=== PATIENT | male | born 1955 | race Caucasian/White ===

== ENCOUNTER → 2017-03-05 | Outpatient (CLI) | payer OTHER | LOC: FIMAGING 07:48 | PROVIDERS: ATTEND Orthopaedic Surgery | DX: Z01.818 Encounter for other preprocedural examination (principal); M17.11 Unilateral primary osteoarthritis, right knee; M25.461 Effusion, right knee; M23.41 Loose body in knee, right knee; M16.11 Unilateral primary osteoarthritis, right hip ==

== ENCOUNTER 2017-03-15 06:07 | Inpatient (IN) | payer OTHER ==
[~2017-03-15 06:07] MED LIST: ROPIVACAINE 0.2% 80 MG, EPINEPHrine 0.2 MG, KETOROLAC TROMETHAMINE 30 MG in SYRINGE 0 ML IU ONE; TRANEXAMIC ACID 3,000 MG in NS 50 ML IRR ONE
[2017-03-15] MEDS ORDERED: ACETAMINOPHEN 325 MG TAB PO ONE (06:12)
[2017-03-15] MEDS ORDERED: ceFAZolin 2 GM/SWFI 2 GM/20 ML SYR IVP ONE (06:12)
[2017-03-15] MEDS ORDERED: FAMOTIDINE 20 MG TAB PO ONE (06:12)
[2017-03-15] MEDS ORDERED: DEXAMETHASONE 4 MG/ML VIAL IVP ONE (06:12)
[2017-03-15] MEDS ORDERED: LR 1,000 ML IV ONE (06:16)
[2017-03-15] MEDS ORDERED: TRANEXAMIC ACID 3,000 MG/50 ML BAG IRR ONE (06:42)
[2017-03-15] MEDS ORDERED: VANCOMYCIN 1 GM VIAL ONE (06:42)
[2017-03-15] MEDS ORDERED: BUPIVACAINE 0.5% 30 ML SDV ONE (07:02)
[2017-03-15] MEDS ORDERED: PROPOFOL/EMULSION 500 MG/50 ML BOTTLE IV ONE (07:03)
[2017-03-15] MEDS ORDERED: MIDAZOLAM 2 MG/2 ML VIAL ONE (07:06)
[2017-03-15] MEDS ORDERED: PROMETHAZINE HCL 25 MG SUPPR PR PRN (07:18)
[2017-03-15] MEDS ORDERED: BISACODYL 10 MG SUPP PR PRN (07:18)
[2017-03-15] MEDS ORDERED: ONDANSETRON DISINTEGRATING 4 MG TAB PO PRN (07:18)
[2017-03-15] MEDS ORDERED: METOCLOPRAMIDE 10 MG/2 ML VIAL IVP PRN (07:18)
[2017-03-15] MEDS ORDERED: PROMETHAZINE HCL 25 MG/ML INJ IVP PRN (07:18)
[2017-03-15] MEDS ORDERED: diphenhydrAMINE 25 MG CAP PO PRN (07:18)
[2017-03-15] MEDS ORDERED: ONDANSETRON 4 MG/2 ML VIAL IVP PRN (07:18)
[2017-03-15] MEDS ORDERED: LACTULOSE 20 GM/30 ML UDCUP PO PRN (07:18)
[2017-03-15] MEDS ORDERED: POLYETHYLENE GLYCOL 3350 17 GM PKT PO PRN (07:18)
[2017-03-15] MEDS ORDERED: DIPHENOXYLATE/ATROPINE LOMOTIL 1 TAB PO PRN (07:18)
[2017-03-15] MEDS ORDERED: TEMAZEPAM 15 MG CAP PO PRN (07:18)
[2017-03-15] MEDS ORDERED: MAGNESIUM HYDROXIDE 30 ML UDCUP PO PRN (07:18)
--- NOTE | 2017-03-15 07:27 | PDHPUP ---
History & Physical Update H&P update statement: This history and physical update is based on an assessment of the patient which was completed after admission or registration (within 24 hours), but prior to the surgery/procedure. H&P update: H&P reviewed & patient examined, no change in patient's condition since H&P completed
[2017-03-15] MEDS ORDERED: LR 1,000 ML IV SCH (07:30)
--- NOTE | 2017-03-15 07:53 | PDANEPAE ---
ANE History of Present Illness right TKA ANE Past Medical History - Cardiovascular History Hx Hypertension: Yes Hx Arrhythmias: No Hx Chest Pain: No Hx Coronary Artery / Peripheral Vascular Disease: No Hx CHF / Valvular Disease: No Hx Palpitations: No Cardiovascular History Comment: bicusbid aortic valve. - Pulmonary History Hx COPD: No Hx Asthma/Reactive Airway Disease: No Hx Recent Upper Respiratory Infection: No Hx Oxygen in Use at Home: No Hx Sleep Apnea: No Sleep Apnea Screening Result - Last Documented: Positive - Neurologic History Hx Cerebrovascular Accident: No Hx Seizures: No Hx Dementia: No - Endocrine History Hx Diabetes: No Hypothyroid: Yes Obesity: no - Renal History Hx Renal Disorders: Yes - Liver History Hx Hepatic Disorders: No - Neurological & Psychiatric Hx Hx Neurological and Psychiatric Disorders: No - Cancer History Hx Cancer: No - Congenital Disorder History Hx Congenital Disorders: No - GI History Hx Gastrointestinal Disorders: No - Other Health History Other Health History: none - Chronic Pain History Chronic Pain: Yes (shoulders) - Surgical History Prior Surgeries: kidney stones x 5. R knee scopes. R wrist sx. L ankle sx. Bilateral hernia sx ANE Review of Systems Review of systems is: negative Review of Systems: - Exercise capacity METS (RN): 5 METS ANE Patient History - Allergies Allergies/Adverse Reactions: Sulfa (Sulfonamide Antibiotics) Allergy (Severe, Verified 06/06/15 11:39) TURNS PURPLE - Home Medications Home medications: home medication list seen and reviewed Home Medications: Alendronate Sodium [Fosamax 70 MG (*)] 70 mg PO SA@0700 02/11/17 [Last Taken 05/25] Cholecalciferol Vit D3 [Vitamin D3 2000 units tab (OTC)] 2,000 units PO DAILY [Last Taken 03/08/17] Fluticasone Nasal [Flonase Nasal [place] (RX)] 1 sprays NASAL HS 02/11/17 [Last Taken 3 Days Ago ~03/12/17] Hydrochlorothiazide [HCTZ (*)] 25 mg PO DAILY 02/11/17 [Last Taken 03/14/17] Hydroxychloroquine Sulfate [Plaquenil 200 mg (*)] 400 mg PO DAILY 02/11/17 [ Last Taken 03/14/17] Levothyroxine [Synthroid 150 mcg (*)] 150 mcg PO DAILY06 02/11/17 [Last Taken ] Naproxen Sodium [Aleve 220 MG (*)] 440 mg PO DAILY 02/11/17 [Last Taken 03/08/17 ] predniSONE 4 mg PO DAILY 02/11/17 [Last Taken 03/14/17] Albuterol [Proventil Inhaler HFA (*)] 1 - 2 puffs IH DAILY PRN 03/15/17 [Last Taken Unknown] - NPO status NPO Since - Liquids (Date): 03/14/17 NPO Since - Liquids (Time): 20:00 NPO Since - Solids (Date): 03/14/17 NPO Since - Solids (Time): 19:30 - Smoking Hx Smoking Status: Former smoker - Family Anes Hx Family Hx Anesthesia Complications: none ANE Labs/Vital Signs - Vital Signs Blood Pressure: 140/91 Heart Rate: 73 Respiratory Rate: 16 O2 Sat (%): 94 Height: 172.72 cm Weight: 79.379 kg ANE Physical Exam - Airway Neck exam: FROM Mallampati Score: Class 1 Mouth exam: normal dental/mouth exam - Pulmonary Pulmonary: no respiratory distress - Cardiovascular Cardiovascular: regular rate and rhythym - ASA Status ASA Status: II ANE Anesthesia Plan Anesthesia Plan: spinal Regional Anesthesia: single shot NB, adductor canal FNB Urgent/Emergent Case: Nasir agrcia completed preop but documented later for safe timely pt care
[2017-03-15] MEDS ORDERED: HYDROmorphONE/DILAUDID 1 MG/ML INJ IVP PRN (07:54)
[2017-03-15] MEDS ORDERED: LR 500 ML IV PRN (07:54)
[2017-03-15] MEDS ORDERED: ACETAMINOPHEN 500 MG TAB PO PRN (07:54)
[2017-03-15] MEDS ORDERED: NALOXONE HCL 0.4 MG/ML INJ IVP PRN (07:54)
[2017-03-15] MEDS ORDERED: ALBUTEROL 3 ML DEYVIAL IH PRN (07:54)
[2017-03-15] MEDS ORDERED: OXYCODONE/APAP 5/325 TAB PO PRN (07:54)
[2017-03-15] MEDS ORDERED: fentaNYL 100 MCG/2 ML INJ IVP PRN (07:54)
--- NOTE | 2017-03-15 07:54 | POSTANESTH ---
Post Anesthetic Evaluation Cardiovascular Status: Normal, Stable Respiratory Status: Normal, Stable Level of Consciousness/Mental Status: Can Participate in Eval Pain Control: Adequate, Prn Tx Ordered Complications Possibly Related to Anesthesia: None Noted
[2017-03-15] MEDS ORDERED: LIDOCAINE 2% 5 ML SDV ONE (08:03)
[2017-03-15] MEDS ORDERED: PROPOFOL 200 MG/20 ML VIAL ONE ×2 (08:08→08:26)
--- NOTE | 2017-03-15 08:45 | POSTOPPROG ---
Post Op Note Date of Operation: 03/15/17 Surgeon: Shannan Sharma Nurseryperson: jalen sharma Anesthesiologist: dr. grove Anesthesia: Spinal, Other (Specify) (adductor canal block) Pre-op Diagnosis: right knee OA Post-op Diagnosis: same Indication: right knee pain due to OA that failed conservative measures Procedure: R TKA robot assisted Findings: severe knee OA Inf/Abcess present in the surg proc area at time of surgery?: No EBL: 50-100
[2017-03-15] MEDS: ASPIRIN 325 MG TAB PO SCH ×2 (11:09→21:17)
[2017-03-15] MEDS: oxyCODONE IR 5 MG TAB PO PRN ×4 (11:15→21:12)
[2017-03-15] MEDS: SENNOSIDES/DOCUSATE SODIUM TAB PO SCH ×2 (11:21→21:11)
[2017-03-15] MEDS: CYCLOBENZAPRINE 10 MG TAB PO PRN ×2 (11:59→21:12)
[2017-03-15] MEDS: ACETAMINOPHEN 325 MG TAB PO SCH ×2 (11:59→18:06)
[2017-03-15] MEDS: ceFAZolin 2 GM/DEXTROSE 100 ML IV SCH (18:06)
[2017-03-15] MEDS ORDERED: FLUTICASONE NASAL 120 SPRAYS/16 GM MDI EACHNARE SCH (21:00)
[2017-03-15] MEDS ORDERED: NON-FORMULARY NEW DRUG (Fluticasone Nasal [Flonase Nasal Spray] 1 SPRAYS) NASAL SCH (21:00)
[2017-03-15] MEDS: FAMOTIDINE 20 MG TAB PO SCH (21:11)
[2017-03-15] MEDS: ASPIRIN 81 MG CHEWABLE TAB PO SCH (21:15)
[2017-03-16] MEDS: ACETAMINOPHEN 325 MG TAB PO SCH ×3 (00:17→12:01)
[2017-03-16] MEDS: ceFAZolin 2 GM/DEXTROSE 100 ML IV SCH (00:18)
[2017-03-16] MEDS: oxyCODONE IR 5 MG TAB PO PRN ×3 (03:33→12:01)
[2017-03-16 04:35] LABS: HEMATOCRIT 40.7 % (40.0-51.0); HEMOGLOBIN 14.6 g/dL (13.7-17.5)
[2017-03-16] MEDS ORDERED: LEVOTHYROXINE 150 MCG TAB PO SCH (06:00)
[2017-03-16 07:28] VITALS: BP 147/79; RESP 14; TEMP 97.7
[2017-03-16] MEDS: ASPIRIN 81 MG CHEWABLE TAB PO SCH (08:12)
[2017-03-16] MEDS: FAMOTIDINE 20 MG TAB PO SCH (08:14)
[2017-03-16] MEDS: SENNOSIDES/DOCUSATE SODIUM TAB PO SCH (08:15)
[2017-03-16] MEDS ORDERED: predniSONE 1 MG TAB PO SCH (09:00)
[2017-03-16] MEDS ORDERED: HYDROCHLOROTHIAZIDE 25 MG TAB PO SCH (09:00)
--- NOTE | 2017-03-16 09:46 | SOAPPROG ---
SOAP Progress Note Assessment/Plan: Assessment: Bryce is doing well today POD 1 s/p R TKA 1) pain management: pain is well controlled on oral pain management 2) VTE ppx: recommend aspirin 81 mg BID 3) d/c planning: d/c to home pending release from PT Plan: 03/16/17 09:44 03/16/17 09:46 Subjective: pain well controlled, denies SOB, chest pain and N/V. Objective: Vital Signs Temp Pulse Resp BP Pulse Ox 36.5 C 65 14 147/79 H 96 03/16/17 07:27 03/16/17 07:27 03/16/17 07:27 03/16/17 08:13 03/16/17 07:27 Laboratory Results 03/16/17 04:15 03/15/17 03/16/17 03/17/17 05:59 05:59 05:59 Intake Total 2920 Output Total 1380 Balance 1540 RLE: incision dressing is clean and dry, NVI, +pf/df ICD10 Worksheet Patient Problems: Problems Problem Status Onset Primary localized osteoarthritis of right knee Acute Calculus of kidney and ureter Active Kidney stone Active
[2017-03-16] MEDS: CYCLOBENZAPRINE 10 MG TAB PO PRN (12:01)
--- NOTE | 2017-03-16 12:35 | ASDISCHSUM ---
Discharge Information Plan Status:Home with No Needs Medically Cleared to Leave: Discharge Date:03/16/2017 12:18 PM CM D/C Disposition:Home, Routine, Self-Care ADT D/C Disposition:Home, Routine, Self-Care Projected Discharge Date:03/16/2017 12:18 PM Transportation at D/C: Discharge Delay Reason: Follow-Up Date:03/16/2017 12:18 PM Discharge Slot: Final Diagnosis: Placement Information Patient Contact Information Contact Name:LACY Relationship: Address:[address] Work Phone: City:[facility] [facility] Phone: [facility]/Zip Code:[place] [address] Email: Financial Information Financial Class:HMO and PPO Plans Primary Plan Desc:[address] PPO Primary Plan Number:[id number] Secondary Plan Desc: Secondary Plan Number: Assessment Information Intervention Information
[2017-03-16 12:57] VITALS: PULSE 69; O2SAT 94
--- NOTE | 2017-03-17 10:42 | GDS ---
[f rep st] DISCHARGE SUMMARY ADMISSION DIAGNOSIS: Right knee osteoarthritis. DISCHARGE DIAGNOSIS: Right knee osteoarthritis. PROCEDURE: Right total knee arthroplasty, robot assist. VTE PROPHYLAXIS: Aspirin recommended 4 weeks, 81 mg twice a day. BRIEF DESCRIPTION OF HOSPITAL STAY: Patient was admitted for an elective joint arthroplasty. The pa ynes tolerated the procedure well and has passed physical therapy. The patient was given appropriat e antibiotic prophylaxis and venous thromboembolism prophylaxis. The patient's pain was well control led on oral pain medication, patient was holding down food, and had urinated. Decision was made to d ischarge the patient. The patient was given post-operative prescriptions pre-operatively. PLAN: To follow up with Dr. Acuna at [facility] as scheduled April 09 at 1 1:30 a.m. /[id number]/MODL
--- NOTE | 2017-03-18 21:58 | GOP ---
[f rep st] OPERATIVE REPORT DATE OF OPERATION: 03/15/2017 SURGEON: Marino Acuna MD ELECTROPHONIC ENGINEER: TA Benoit ANESTHESIA: Spinal. PREOPERATIVE DIAGNOSIS: Right knee osteoarthritis. POSTOPERATIVE DIAGNOSIS: Right knee osteoarthritis. PROCEDURE PERFORMED: Right total knee arthroplasty with computer navigation and robotic assist. FINDINGS: Severe medial and PF DJD ESTIMATED BLOOD LOSS: 30 cc. INDICATIONS: This is a 61-year-old male with severe and progressive pain and deformity of the right knee unresponsive to conservative care. Risks and benefits of the surgical intervention were explained in detail. DESCRIPTION OF PROCEDURE: The patient was brought to the operative room and placed on the table in the supine position. Spinal anesthesia was induced without difficulty. A pneumatic tourniquet was applied about the right proximal thigh, and the leg was prepped and draped in a sterile fashion. The leg cooper was applied. After exsanguination by elevation the tourniquet was inflated to 275 mm of mercury. Incision was made anterior medial from the tibial tuberosity to a point 2 cm proximal to the superior pole of the patella. Medial parapatellar arthrotomy was carried out from the superior pole of the patella and posteriorly in line with the fibers of the Type II VMO. The medial collateral ligament was elevated and the infrapatellar fat pad was resected. The patella was everted and the articular surface was excised. A 38 mm patellar button was placed. Attention was turned first to the distal aspect of the right femur. At 3 cm proximal to the medial rise of the femur, 2 percutaneous half pins were placed for fixation of the femoral array. In a similar fashion, 2 pins were placed anteromedial on the tibia for fixation of the tibial array. External land marking and registration of the hip center was performed without difficulty. Internal femoral and tibial registration was carried out without difficulty and the femoral and tibial checkpoints were placed and verified for accuracy. Attention was turned to the femur. The foot print for the size 6 femoral component was cut with the saw using the [email or web address] robotic system and verified for accuracy against the CT based plan. In a similar fashion, saw was used to cut the footprint for the size 7 tibial component using the [employer] system and verified for accuracy against the CT based plan. The tibial articular surface was excised without difficulty, followed by the intercondylar box cut. The knee was extended and the remnants of the medial and lateral meniscus were excised. The posterior capsule was injected with ropivacaine, epinephrine and Toradol. A size 7 MIS mini-keel tibial tray was positioned. Trial reduction was then carried out. There was excellent range of motion, alignment, and stability using the 9 mm polyethylene. All trials were then removed. The joint was thoroughly irrigated and carefully dried. Two packages of cement and 2 grams of vancomycin were mixed in the vacuum mixer and placed on the fixation surfaces of all surfaces of the components. The components were implanted and all excess cement was thoroughly removed. The permanent 9 mm polyethylene was placed without difficulty. The tourniquet was deflated and all bleeders were coagulated. The wound was thoroughly irrigated and closed using interrupted sutures of 2-0 Vicryl for the joint capsule. The subcu was closed with 3-0 Vicryl and the skin with 4-0 Monocryl. Dermabond and Steri-Strips were applied followed by a compressive dressing. The patient was then moved from the operating room to the recovery room in good condition, having tolerated the procedure well. /[id number]/MODL MTDD
== END 2017-03-16 12:18 | disposition home or self-care (01) | DRG 470 ==
LOC: F3N 06:07
PROVIDERS: ADMIT Orthopaedic Surgery; ATTEND Orthopaedic Surgery
PROC: 0SRC0J9 Replacement of Right Knee Joint with Synthetic Substitute, Cemented, Open Approach (ICD-10-PCS; principal; 2017-03-15 07:15)
DX: M17.11 Unilateral primary osteoarthritis, right knee (principal); I10 Essential (primary) hypertension; Q23.1 Congenital insufficiency of aortic valve; E03.9 Hypothyroidism, unspecified; E78.5 Hyperlipidemia, unspecified; F43.23 Adjustment disorder with mixed anxiety and depressed mood; M06.9 Rheumatoid arthritis, unspecified; Z87.891 Personal history of nicotine dependence
CPT/HCPCS: 97110-GP; 97116-GP; 97161-GP; 97165-GO; C1713; J0171; J0690; J1100; J1885; J2250; J2704; J2795; J3370

== ENCOUNTER → 2017-06-03 | Emergency (ER) | payer SELFPAY ==
[2017-06-03 19:25] VITALS: BP 165/115; PULSE 109; RESP 18; TEMP 97.7; O2SAT 92
== END | disposition left against medical advice (07) ==
DX: Z53.21 Procedure and treatment not carried out due to patient leaving prior to being seen by health care provider (principal)